=== PATIENT | male | born 1950 | race Caucasian/White ===

== ENCOUNTER → 2021-10-18 | Outpatient (REF) | payer MEDICARE ==
[2021-10-19 21:17] LABS: POTASSIUM SERUM 4.5 MEQ/L (3.5-5.1)
== END ==
LOC: M LAB REF 18:25
PROVIDERS: ATTEND Internal Medicine Nephrology
DX: N18.31 Chronic kidney disease, stage 3a (principal); E11.21 Type 2 diabetes mellitus with diabetic nephropathy; D63.1 Anemia in chronic kidney disease

== ENCOUNTER → 2022-04-12 | Outpatient (REF) | payer MEDICARE ==
[2022-04-12 18:30] LABS: PERCENT SATURATION 4.3 % (19.7-50.0)
[2022-04-12 18:33] LABS: FERRITIN 6.5 NG/ML (10.5-307.3)
== END ==
LOC: M LAB REF 17:19
PROVIDERS: ATTEND Internal Medicine Nephrology
DX: N18.9 Chronic kidney disease, unspecified (principal); D63.1 Anemia in chronic kidney disease

== ENCOUNTER 2022-04-21 12:13 | Outpatient (CLI) | payer MEDICARE ==
[~2022-04-21] VITALS: Ht 165.1 cm; Wt 77.5 kg
[~2022-04-21 12:13] MED LIST: ALBUTEROL SULFATE 2.5MG/0.5ML INH NEB SOLN INH PRN; EPINEPHrine INJ 1 MG/ML 1ML AMP IM PRN; diphenhydrAMINE 50MG/ML VIAL IV PRN; methylPREDNISolone 125MG 2ML VIAL IV PRN
[2022-04-21] MEDS ORDERED: FERRIC CARBOXYMALTOSE INJ 750 MG in NS 250 ML (>50kg) IV ONE ×3 (12:30)
[2022-04-21] MEDS ORDERED: NS 1,000 ML IV SCH (12:30)
[2022-04-21 12:37] VITALS: BP 123/60
[2022-04-21 13:41] VITALS: BP 122/59
== END 2022-04-21 13:45 | disposition home or self-care (01) ==
LOC: M INFU 12:13
PROVIDERS: ATTEND Internal Medicine Nephrology
DX: E61.1 Iron deficiency (principal)
CPT/HCPCS: 96365; J1439

== ENCOUNTER → 2022-04-28 | Outpatient (CLI) | payer MEDICARE ==
[~2022-04-28] VITALS: Ht 165.1 cm; Wt 77.6 kg
[~2022-04-28] MED LIST changes: +FERRIC CARBOXYMALTOSE INJ 750 MG in NS 250 ML (>50kg) IV ONE; +NS 1,000 ML IV SCH
[2022-04-28 11:51] VITALS: BP 132/68
[2022-04-28 12:54] VITALS: BP 132/63
== END ==
LOC: M INFU 11:30
PROVIDERS: ATTEND Internal Medicine Nephrology
DX: E61.1 Iron deficiency (principal); Z88.8 Allergy status to other drugs, medicaments and biological substances
CPT/HCPCS: 96365; J1439